=== PATIENT | female | born 1990 | race African-American/Black ===

== ENCOUNTER 2021-03-22 12:54 | Emergency (ER) | payer MEDICAID ==
[~2021-03-22] VITALS: Ht 160 cm; Wt 70.5 kg
[2021-03-22] MEDS ORDERED: SODIUM CHLORIDE 0.9% 1,000 ML IV ONE (13:45)
[2021-03-22 14:27] LABS: BASOPHILS % 0.7 % (0.0-2.0); EOSINOPHILS % 1.3 % (0.0-5.0); HEMATOCRIT. 40.4 % (36.0-48.0); HEMOGLOBIN. 13.7 g/dL (12.0-16.0); LYMPHOCYTES % 27.3 % (20.0-50.0); MEAN CORPUSCULAR HEMOGLOBIN 31.5 pg (28.0-32.0); MEAN CORPUSCULAR VOLUME 92.7 fL (81.0-99.0); MEAN PLATELET VOLUME 9.5 fl (7.4-10.4); MONOCYTES % 9.4 % (2.0-8.0); NEUTROPHILS % 61.3 % (40.0-76.0); PLATELET 276 x1000/uL (130-400); RED BLOOD CELL COUNT 4.36 mill/uL (4.2-5.4); RED CELL DISTRIBUTION WIDTH 12.5 % (11.6-14.6)
[2021-03-22 14:33] LABS: CHLORIDE 110 mEq/L (98-107); HCG SCREEN NEGATIVE
[2021-03-22 14:53] LABS: CLARITY URINE CLEAR (CLEAR); COLOR URINE YELLOW (YELLOW); KETONES URINE NEGATIVE (NEGATIVE); LEUKOCYTE ESTERASE URINE 1+ (NEGATIVE); NITRITE URINE NEGATIVE (NEGATIVE); OCCULT BLOOD URINE NEGATIVE (NEGATIVE); PROTEIN URINE NEGATIVE (NEGATIVE); SPECIFIC GRAVITY URINE 1.009 (1.005-1.030); UROBILINOGEN URINE 0.2 E.U./dL (0.2-1.0)
[2021-03-22] MEDS ORDERED: NITR-87 MT ×2 (15:40→15:43)
[2021-03-22 16:00] VITALS: BP 104/64
== END 2021-03-22 16:20 | disposition home or self-care (01) ==
LOC: ER 14:02
DX: R53.1 Weakness (principal); N39.0 Urinary tract infection, site not specified; H53.8 Other visual disturbances
CPT/HCPCS: 36415; 70450; 80053; 81003; 81025; 82962; 84484; 84703; 85025; 93005; 99285; J7030